=== PATIENT | female | born 1935 | race Caucasian/White ===

== ENCOUNTER 2020-01-30 20:44 | Observation (INO) ==
[2020-01-30 21:29] LABS: Basophils % 0.4 % (0.0-0.8); Eosinophils % 0.1 % (0.00-10.9); Hematocrit 32.8 VOL% (35.7-47.0); Hemoglobin 11.9 GM/DL (12.0-16.0); Immature Granulocytes % 0.7 %; Immature Granulocytes Absolute 0.07 #; Lymphocytes # 0.6 10*3/uL (1.4-4.0); Lymphocytes % 5.6 % (21.3-54.2); Mean Corpuscular HGB Conc 36.3 GM/DL (32-36); Mean Corpuscular Volume 86.8 FL (87-102); Monocytes % 6.7 % (1.7-12.7); Neutrophils % 86.5 % (38.7-73.9); Platelet Count 207 T/CUMM (130-400); Red Blood Count 3.78 MC/CUMM (3.8-5.5); Red Cell Distribution Width 11.6 % (9.3-17.3); White Blood Count 10.2 T/CUMM (4-12)
[2020-01-30 21:43] LABS: Apearance,Urine CLEAR (Clear); Bilirubin,Urine Negative (Negative); Blood, Urine Negative (Negative); Glucose,Urine (UA) 50 mg/dL (Negative); Ketones,Urine 5 mg/dL (Negative); Nitrite,Urine Negative (Negative); Protein,Urine Negative; RBC,Urine 3 /HPF (0-4); Urine Color Colorless (Yellow); Urine Specific Gravity 1.005 (1.001-1.035); Urine Urobilinogen < 2.0 EU/DL (0.2-1.0); WBC,Urine <1 /HPF (0-6)
[2020-01-30 21:56] LABS: Albumin 3.3 G/DL (3.4-5.0); Bilirubin,Total 0.6 MG/DL (0.2-1.0); Calcium 7.7 MG/DL (8.5-10.1); Osmolality,Calculated 252.4 MOS/KG (273-304)
[2020-01-30] MEDS ORDERED: ONDANSETRON 4 MG/2 ML VIAL IV PRN (22:09)
[2020-01-30] MEDS ORDERED: PIPERACILLIN/TAZOBACTAM 3,375 MG in SODIUM CHLORIDE 0.9% 100 ML IV STA (22:09)
[2020-01-30] MEDS ORDERED: ACETAMINOPHEN 325 MG TABLET PO PRN (22:09)
[2020-01-30] MEDS ORDERED: DEXTROSE 5% NACL 0.9% 1,000 ML IV SCH (22:30)
[2020-01-31] MEDS ORDERED: LEVOTHYROXINE 75 MCG TABLET PO SCH (06:30)
[2020-01-31 08:28] LABS: Basophils % 0.3 % (0.0-0.8); Eosinophils % 0.2 % (0.00-10.9); Hematocrit 32.8 VOL% (35.7-47.0); Hemoglobin 11.6 GM/DL (12.0-16.0); Immature Granulocytes % 0.5 %; Immature Granulocytes Absolute 0.03 #; Lymphocytes # 0.7 10*3/uL (1.4-4.0); Lymphocytes % 11.2 % (21.3-54.2); Mean Corpuscular HGB Conc 35.4 GM/DL (32-36); Mean Corpuscular Volume 87.7 FL (87-102); Mean Platelet Volume 10.1 FL (9.6-12.0); Monocytes % 11.6 % (1.7-12.7); Neutrophils % 76.2 % (38.7-73.9); Platelet Count 218 T/CUMM (130-400); Red Blood Count 3.74 MC/CUMM (3.8-5.5); Red Cell Distribution Width 11.9 % (9.3-17.3); White Blood Count 6.5 T/CUMM (4-12)
[2020-01-31] MEDS ORDERED: PANTOPRAZOLE 40 MG VIAL IV SCH (09:00)
[2020-01-31] MEDS ORDERED: PARoxetine 20 MG TABLET PO SCH (09:00)
[2020-01-31] MEDS ORDERED: EZETIMIBE 10 MG TABLET PO SCH (09:00)
[2020-01-31 09:04] LABS: Albumin 3.1 G/DL (3.4-5.0); Bilirubin,Total 1.4 MG/DL (0.2-1.0); Osmolality,Calculated 261.7 MOS/KG (273-304); Thyroid Stimulating Hormone 0.773 uIU/ml (0.358-3.74); Total Protein 5.8 G/DL (6.4-8.3)
[2020-01-31] MEDS ORDERED: POTASSIUM CHLORIDE 20 MEQ TABLET PO ONE (10:50)
[2020-01-31 11:49] VITALS: BP 163/58
== END 2020-01-31 15:50 | disposition home or self-care (01) ==
LOC: EDUNIT# → EDBD → N.ED 20:44 → N.EDINP 20:44 → N.3E 23:20
PROVIDERS: ADMIT Family Medicine; ATTEND Family Medicine